=== PATIENT | male | born 1990 | race African-American/Black ===

== ENCOUNTER → 2018-09-09 07:26 | Outpatient (CLI) | payer OTHER ==
[~2018-09-09 07:26] MED LIST: KEFLEX500 MG PO; PERCOCET 10-321 EAC1 PO; ULTRAM50 MG PO; VISTARIL50 MG PO; ZOFRAN ODT4 MG/UDTAB PO
== END | disposition home or self-care (01) ==
LOC: D.MRI 07:26
DX: S83.272A Complex tear of lateral meniscus, current injury, left knee, initial encounter (principal)

== ENCOUNTER 2018-10-02 10:35 | Day surgery (SDC) | payer MEDICAID ==
[~2018-10-02 10:35] MED LIST changes: -KEFLEX500 MG PO; -PERCOCET 10-321 EAC1 PO; -VISTARIL50 MG PO; -ZOFRAN ODT4 MG/UDTAB PO
[2018-10-02 11:45] VITALS: BP 139/88; BMI 31.5
[2018-10-02] MEDS ORDERED: KEFLEX500 MG PO (15:38)
[2018-10-02] MEDS ORDERED: PERCOCET 10-321 EAC1 PO (15:38)
[2018-10-02] MEDS ORDERED: VISTARIL50 MG PO (15:39)
[2018-10-02] MEDS ORDERED: ZOFRAN ODT4 MG/UDTAB PO (15:39)
--- NOTE | 2018-10-05 16:54 | OP ---
PATIENT NAME: LISA SPAULDING MEDICAL RECORD: [id number] :92 LOCATION:[facility] ADMISSION DATE: SURGEON: MIKHAIL RAMÍREZ DO DATE OF OPERATION: 10/02/2018 PROCEDURE PERFORMED: Left knee arthroscopy with a lateral release and tibial tubercle osteotomy. PREOPERATIVE DIAGNOSIS: Left knee patellofemoral disorder and malalignment. POSTOPERATIVE DIAGNOSIS: Left knee patellofemoral disorder and malalignment. INDICATIONS: Mr. Spaulding is a 28-year-old male who had a loud pop in his knee a few weeks ago. 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 He did not know if that was what happened recently or not. He had an MRI, which did show ACL sprain and a TT-TG of 25, which is well above the normal range, anything less than 20 mm is normal and he said he has symptoms of instability of the patella and also pain with his knee. He has had it for years. He says he is tired of dealing with it and been wearing a brace and tried a home physical therapy and home exercises with no relief. He was informed of the risks including infection, bleeding, damage to nerve and vessels, need for further surgery, fracture, prominence of hardware and continued knee pain. He was aware of that and signed the consent as well as blood clots and even as well as a rehab portion of it. SURGEON: Mikhail Ramírez DO DESCRIPTION OF PROCEDURE: The patient received a block by anesthesia in the preoperative area. He was taken to the operative suite, laid in supine position. Left lower extremity was prepped and draped in sterile fashion. Timeout was performed. Every one was in agreeance with correct side, site, patient and procedure. The patient was given 2 grams Ancef preoperatively. The knee was then flexed down and the lateral portal was established with an 11-blade scalpel. The trocar was entered into the knee. The knee arthroscopy was performed through the lateral portal. The suprapatellar pouch was viewed and no loose bodies were seen. The medial and lateral gutters were viewed too. No loose bodies there. The knee was then flexed down and the medial compartment was entered. Cartilage looked good. No chondromalacia was seen. Medial portal was then established using a spinal needle and 11-blade scalpel. Probe was then brought in to probe the medial meniscus, it did not have any tears. The ACL, which was shown as strained on the MRI was probed as well, was seen to be in good position without any tears. The knee was then figure-foured. The lateral compartment was entered and the medial meniscus was checked. No loose bodies or no tears seen in there and the lateral meniscus looked good and the cartilage on the medial femoral condyle as well as the medial tibial plateau looked good. The patella was then checked. No fissuring was seen on it or chondromalacia in the trochlea. The water was turned off. Suction was then turned on and the open portion of the procedure began with a midline incision over the knee. The tourniquet was inflated after the Esmarch was used to exsanguinate the left lower extremity. It was inflated to 350 mmHg, it was up for 73 minutes. Once it was inflated, the incision began with a 10 blade scalpel down to the capsule, it was peeled off with flaps medial and laterally. The lateral release was then done taking care not to go too deep to enter the lateral meniscus. Once the lateral release was performed. The patellar tendon was freed up on the medial and lateral sides. The anterior compartment was released off the tibia as well OPERATIVE REPORT [id number] LISA SPAULDING and the retractors put in. A centering pin was placed in the tibial tubercle. Then, the guide was used to do that. The 45-degree guide was then placed on the medial side of the tibia tubercle. The pins were put into place. Once it was in satisfactory position, the saw was then used to cut through most of the bone leaving a hinge distally, periosteum and bone. Once the saw was cut through and then a diagonal cut was made on the lateral side to complete the osteotomy of the proximal portion. An osteotome was then used to break through the rest of the bone and the tibial tubercle was transferred medially and anteriorly, medially approximately 1.2 cm or 12 mm giving him normal alignment. This was then pinned in place using 3 pins, one 1 x 8 and two 1 x 4. The 1 x 4s were used for the 4-0 cannulated screws and then an out of plane to keep the osteotomy from sliding distally. The x-ray was then used for the pins for the 4-0 cannulated screws to get to the posterior cortex, a 65 length screw was used in more proximal and then 46 used more distally. These were put into place and had good compression at the osteotomy site and was very firm and good fixation. Then, a stay graft DBM+ 5 cc was used to fill in the defect on the lateral side and the medial side of the osteotomy was fanned down. Any sharp edges were removed at that time. A countersink was used on the screws to bury them, did not have any prominence. The tourniquet was then let down and any bleeding was coagulated at that time and a part of the capsule on the medial side was closed with #1 Vicryl in a dkygsc-fv-evwes fashion and the fascia was loosely closed on the lateral side of the tibia over the anterior compartment in a erdsfh-da-puway fashion. Skin was then closed after irrigation with 2-0 Vicryl in an interrupted fashion. A ZipLine was placed on the knee. Adaptic, 4 x 4s, ABD, Webril and Han wrap were then placed on the knee with a BIBI hose stocking up to the knee. He was then placed in a hinged knee brace locked to 0 and awakened and taken to recovery in stable condition. Blood loss was approximately 50 mL. COMPLICATIONS: None. TRANSINT:[id number] Voice Confirmation ID: [id number] DOCUMENT ID: [id number] MIKHAIL RAMÍREZ DO at 1654 CC: [id number] DICTATION DATE: 10/02/18 1548 [employer] P[employer]ER: 10/02/[id number] [facility] 10/02/18 [id number] [place] [address]
== END 2018-10-02 18:10 | disposition home or self-care (01) ==
LOC: D.OPS 10:35 → D.PAN 12:00 → D.OPS 12:00 → D.PAN 13:10 → D.OPS 18:10
PROVIDERS: ATTEND Orthopaedic Surgery
DX: M22.2X2 Patellofemoral disorders, left knee (principal); Z01.812 Encounter for preprocedural laboratory examination